=== PATIENT | female | born 1960 | race Caucasian/White ===

== ENCOUNTER 2018-07-03 22:30 | Emergency (ER) | payer OTHER, SELFPAY ==
[~2018-07-03] VITALS: Ht 154.9 cm; Wt 59.8 kg
[2018-07-03 23:12] VITALS: BP 190/81
== END 2018-07-03 23:14 | disposition home or self-care (01) ==
LOC: ED 23:08
DX: F41.9 Anxiety disorder, unspecified (principal); Z76.0 Encounter for issue of repeat prescription
CPT/HCPCS: 99284

== ENCOUNTER 2018-11-28 18:52 | Emergency (ER) | payer SELFPAY ==
[~2018-11-28] VITALS: Ht 154.9 cm; Wt 62.3 kg
[2018-11-28 18:57] VITALS: BP 180/78
== END 2018-11-28 20:23 | disposition home or self-care (01) ==
LOC: ED 20:15
DX: R56.9 Unspecified convulsions (principal); Z76.0 Encounter for issue of repeat prescription
CPT/HCPCS: 99283

== ENCOUNTER 2019-02-07 15:07 | Emergency (ER) | payer OTHER ==
[~2019-02-07] VITALS: Ht 154.9 cm; Wt 63.0 kg
--- NOTE | 2019-02-07 15:19 | NUR ---
Pt BIB [facility] from [facility] in custody of [employer]. Pt was being booked into [facility] today and her BP was high. Pt has no hx of HTN, only medical hx is anxiety. Pt c/o dizziness that started as she was walking into the ED. Pt denies pain, no neuro defecits, NADN. Pt placed in gown, positioned for comfort in bed. Continuous heart, oxygen and BP monitors applied, all safety measures observed. [employer] officer at bedside.
--- NOTE | 2019-02-07 15:29 | NUR ---
Pt medicated per [facility], denies other needs.
[2019-02-07] MEDS ORDERED: PLEASE ENTER HEIGHT AND WEIGHT MC SCH (15:30)
--- NOTE | 2019-02-07 16:15 | NUR ---
Pt ambulatory to bathroom and back to bed without difficulty.
[2019-02-07 16:37] VITALS: BP 173/73
== END 2019-02-07 16:40 | disposition home or self-care (01) ==
LOC: ED 16:34
DX: I10 Essential (primary) hypertension (principal); F41.1 Generalized anxiety disorder; R42 Dizziness and giddiness
CPT/HCPCS: 80047; 93005; 99284

== ENCOUNTER 2021-03-25 21:38 | Emergency (ER) | payer SELFPAY ==
[2021-03-25 22:25] LABS: BASOPHILS % (AUTO) 1 % (0-1); EOSINOPHILS % (AUTO) 1 % (1-7); LYMPHOCYTES % (AUTO) 39 % (22-44); MEAN CORPUSCULAR HEMOGLOBIN 29.5 pg (27.0-34.8); MEAN CORPUSCULAR HGB CONC 34.1 g/dL (32.4-35.8); MEAN PLATELET VOLUME 8.2 fL (7.4-10.4); MONOCYTES % (AUTO) 7 % (2-9); NEUTROPHILS % (AUTO) 52 % (42-75); PLATELET COUNT 238 x10^3/uL (130-400); RED BLOOD COUNT 4.98 x10^6/uL (3.82-5.3); RED CELL DISTRIBUTION WIDTH 13.4 % (9.6-15.2)
[2021-03-25 22:37] LABS: ALBUMIN 3.9 g/dL (3.4-5.0); ANION GAP 4 mmol/L (5-15); CALCIUM 9.6 mg/dL (8.5-10.1); CHLORIDE 105 mmol/L (98-107); CREATININE 0.73 mg/dL (0.55-1.02)
--- NOTE | 2021-03-25 22:44 | NUR ---
patient presents to the ER with complaints of seizures and anxiety. Patient has no complaints of chest pain and takes medication at home for anxiety as well. Patient has elevated BP upon arrival with systolic being in the 200's
--- NOTE | 2021-03-25 22:45 | NUR ---
Seizure pads in place
--- NOTE | 2021-03-25 23:45 | NUR ---
Patient still hypertensive. ERP aware. Patient prescribed meds for same.
[2021-03-25] MEDS ORDERED: ACETAMINOPHEN 325 MG TABLET ONE (23:46)
--- NOTE | 2021-03-25 23:49 | NUR ---
Patient c/o slight BROWN; admin Tylenol per nov. Discharge instructions given. All questions and concerns addressed. Patient ambulatory with a steady gait. Belongings with patient.
[2021-03-25 23:58] VITALS: BP 201/78
[2021-03-26] MEDS ORDERED: ACETAMINOPHEN 325 MG TABLET PO ONE
--- NOTE | 2021-03-26 00:01 | NUR ---
provider aware of elevated BP in 200's systolic. Provider okay with patient discharging with elevated BP. Provider prescribed BP prescription to go home with
== END 2021-03-25 23:56 | disposition home or self-care (01) ==
LOC: ED 22:00
DX: R55 Syncope and collapse (principal); I10 Essential (primary) hypertension; M25.552 Pain in left hip; R56.9 Unspecified convulsions; R94.31 Abnormal electrocardiogram [ECG] [EKG]
CPT/HCPCS: 36415; 80048; 82040; 84484; 85025; 93005; 99285